=== PATIENT | male | born 1970 | race Caucasian/White ===

== ENCOUNTER → 2017-05-25 | Outpatient (CLI) | payer OTHER ==
[2015-10-07 00:35] VITALS: BP 143/89
[2017-05-25 17:51] LABS: CALCIUM 8.7 mg/dL (8.5-10.1); CREATININE 1.4 mg/dL (0.7-1.3); GFR 54.1; POTASSIUM 4.1 mmol/L (3.5-5.1)
[2017-05-25 17:53] LABS: BASO % 1 % (0-3); EOS # 0.2 x10^3/uL (0.0-0.7); EOS % 5 % (0-3); HEMATOCRIT 42.4 % (39.0-53.0); HEMOGLOBIN 14.6 g/dL (13.0-17.5); LYMPH # 1.1 x10^3/uL (1.0-4.8); LYMPH % 25 % (24-48); MEAN CORPUSCULAR HEMOGLOBIN 30 pg (25-35); MEAN CORPUSCULAR HGB CONC 34 g/dL (31-37); MEAN CORPUSCULAR VOLUME 87 fL (79-100); MONO # 0.5 x10^3/uL (0.0-1.1); MONO % 11 % (0-9); NEUT # 2.5 x10^3uL (1.8-7.7); NEUT % 58 % (31-73); PLATELET COUNT 145 x10^3/uL (140-400); RED BLOOD COUNT 4.87 x10^6/uL (4.30-5.70); RED CELL DISTRIBUTION WIDTH 13.2 % (11.5-14.5); WHITE BLOOD COUNT 4.3 x10^3/uL (4.0-11.0)
== END | disposition home or self-care (01) ==
LOC: LAB 17:03
PROVIDERS: ATTEND Family Medicine
DX: A41.9 Sepsis, unspecified organism (principal)
CPT/HCPCS: 36415; 80048; 83605; 85027; 87040

== ENCOUNTER → 2017-07-10 | Outpatient (CLI) | payer OTHER ==
[2015-10-07 00:35] VITALS: BP 143/89
--- NOTE | 2017-07-10 14:29 | RAD ---
Examination: Ultrasound right lower extremity venous duplex History: History of chronic leg pain, swelling. Comparison: None available Technique: Grayscale, color Doppler 2-D, spectral waveform analysis of the right lower extremity venous system was performed Findings The visualized common femoral vein, superficial femoral vein, popliteal vein demonstrate normal compression and augmentation of flow. The visualized calf veins are patent. Impression: No evidence of deep venous thrombosis right lower extremity venous system.
== END | disposition home or self-care (01) ==
LOC: US 13:41
PROVIDERS: ATTEND Physician Assistant
DX: G89.29 Other chronic pain (principal); M79.604 Pain in right leg; M79.89 Other specified soft tissue disorders
CPT/HCPCS: 93971

== ENCOUNTER → 2018-05-11 | Outpatient (CLI) | payer OTHER ==
[2017-04-19 12:38] VITALS: BP 154/84
[~2018-05-11] MED LIST: ACET500T55 PO; FLUT9.9S NS; IBUP800T19 PO; OMEG-33 PO; POTA20TA4 PO; ST.300CA2 PO; TORS20TA2 PO; VANC2PLA5 IV
== END | disposition home or self-care (01) ==
LOC: LAB 15:49
PROVIDERS: ATTEND Internal Medicine Cardiovascular Disease
DX: R06.09 Other forms of dyspnea (principal); I48.0 Paroxysmal atrial fibrillation
CPT/HCPCS: 36415; 83880; 85379

== ENCOUNTER 2021-07-12 14:03 | Inpatient (IN) | payer OTHER ==
[~2021-07-12] VITALS: Ht 193 cm; Wt 197.1 kg
[2021-07-12] MEDS: ENOXAPARIN ** NOTE DOSE ** SYRINGE SQ SCH ×2 (05:30→17:30)
[~2021-07-12 14:03] MED LIST changes: -ALBU2.5V14 NEB; -APIX5TAB3 PO; -BUDE8.435 NS; -BUME1TAB3 PO; -CEFD300C PO; -DEXA4VIA37 PO; -IOHEXOL 350 MG/ML 100 ML VIAL. IV ONE
--- NOTE | 2021-07-12 14:53 | PHYS DOC ---
Past History Past Medical History: Other Additional Past Medical Histor: Retains fluid throughout body (JOSE KANG APRN) Past Surgical History: No Surgical History (JOSE KANG APRN) Alcohol Use: None Drug Use: None (JOSE KANG APRN) General Adult EDM: Chief Complaint: SHORTNESS OF BREATH HPI: HPI: Patient is a 50-year-old male who presents to the ER today for pulmonary embolisms. Patient reports he had Covid on June 25 and has had shortness of breath with exertion. He saw Dr. Lee in his office today and was scheduled for an outpatient CT scan of his chest. He received a phone call stating that he needs to go to the ER for pulmonary embolisms. Patient denies any shortness of breath at rest but does report shortness of breath with exertion. He denies chest pain, leg pain, increased leg swelling, fevers. Patient's vital signs are stable at this time he is 94% on room air, with regular heart rate. (JOSE KANG APRN) Review of Systems: Review of Systems: 14 body systems of the review of systems have been reviewed. See HPI for pertinent positive and negative responses, otherwise all other systems are negative, nonpertinent or noncontributory (JOSE KANG APRN) Allergies: Allergies: Allergies Coded Allergies Type Severity Reaction Last Updated Verified Latex, Natural Rubber Allergy Intermediate 10/06/15 Yes NON MED ENTRY Allergy Intermediate 07/12/17 Yes lactose Allergy Intermediate 07/12/17 Yes pseudoephedrine Allergy Intermediate 07/12/17 Yes loratadine Allergy Mild 07/12/17 Yes (JOSE KANG APRN) Physical Exam: PE: Constitutional: Well developed, well nourished, no acute distress, non-toxic appearance. [] HENT: Normocephalic, atraumatic, bilateral external ears normal, oropharynx moist, no oral exudates, nose normal. [] Eyes: PERRL, EOMI, conjunctiva normal, no discharge. [] Neck: Normal range of motion, no stridor Cardiovascular:Heart rate regular rhythm, no murmur [] Lungs & Thorax: Bilateral breath sounds clear to auscultation [] Abdomen: Bowel sounds normal, soft, no tenderness, obese, no masses, no pulsatile masses. [] Skin: Warm, dry, no erythema, no rash. [] Back: Normal range of motion Extremities: No tenderness, no cyanosis, no clubbing, ROM intact, 3+ nonpitting edema that patient states is his baseline as he has a history of edema Neurologic: Alert and oriented X 3, normal motor function, normal sensory function, no focal deficits noted. [] Psychologic: Affect normal, judgement normal, mood normal. [] (JOSE KANG APRN) Current Patient Data: Labs: Laboratory Tests Test 07/12/21 14:45 White Blood Count 6.3 x10^3/uL Red Blood Count 4.86 x10^6/uL Hemoglobin 14.7 g/dL Hematocrit 43.7 % Mean Corpuscular Volume 90 fL Mean Corpuscular Hemoglobin 30 pg Mean Corpuscular Hemoglobin Concent 34 g/dL Red Cell Distribution Width 13.7 % Platelet Count 296 x10^3/uL Neutrophils (%) (Auto) 69 % Lymphocytes (%) (Auto) 16 % Monocytes (%) (Auto) 13 % Eosinophils (%) (Auto) 2 % Basophils (%) (Auto) 1 % Neutrophils # (Auto) 4.4 x10^3uL Lymphocytes # (Auto) 1.0 x10^3/uL Monocytes # (Auto) 0.8 x10^3/uL Eosinophils # (Auto) 0.1 x10^3/uL Basophils # (Auto) 0.0 x10^3/uL Prothrombin Time 11.4 SEC Prothromb Time International Ratio 1.1 Activated Partial Thromboplast Time 25 SEC Sodium Level 142 mmol/L Potassium Level 4.7 mmol/L Chloride Level 105 mmol/L Carbon Dioxide Level 28 mmol/L Anion Gap 9 Blood Urea Nitrogen 11 mg/dL Creatinine 1.2 mg/dL Estimated GFR (Cockcroft-Gault) 63.6 BUN/Creatinine Ratio 9 Glucose Level 100 mg/dL Lactic Acid Level 1.7 mmol/L Calcium Level 8.8 mg/dL Total Bilirubin 1.0 mg/dL Aspartate Amino Transf (AST/SGOT) 45 U/L Alanine Aminotransferase (ALT/SGPT) 79 U/L Alkaline Phosphatase 123 U/L Troponin I Quantitative < 0.017 ng/mL RL-Lkf-G-Type Natriuretic Peptide 241 pg/mL Total Protein 7.2 g/dL Albumin 3.1 g/dL Albumin/Globulin Ratio 0.8 Vital Signs: Vital Signs Date Time Temp Pulse Resp B/P (MAP) Pulse Ox O2 Delivery O2 Flow Rate FiO2 07/12/21 14:25 98.2 104 20 120/55 (76) 92 Room Air (JOSE KANG APRN) EKG: EKG: EKG performed by ER staff at 1507 shows sinus rhythm, no STEMI read by Dr. Franks at 1512. [] (JOSE KANG APRN) Radiology/Procedures: Radiology/Procedures: [] (JOSE KANG APRN) Heart Score: C/O Chest Pain: No Risk Factors: Risk Factors: DM, Current or recent (<one month) smoker, HTN, HLP, family history of CAD, obesity. Risk Scores: Score 0 - 3: 2.5% MACE over next 6 weeks - Discharge Home Score 4 - 6: 20.3% MACE over next 6 weeks - Admit for Clinical Observation Score 7 - 10: 72.7% MACE over next 6 weeks - Early Invasive Strategies (JOSE KANG APRN) Course & Med Decision Making: Course & Med Decision Making Pertinent Labs and Imaging studies reviewed. (See chart for details) [] Patient is a 50-year-old male being seen in the ER for pulmonary embolisms. Patient was told that he had a several PEs based on the CT scan that he had of his chest by Dr. Lee. Work-up in the ER consisted of blood work and an E KG. I was able to see the CTA of patient's chest since it was performed in our outpatient radiology. Patient was noted to have multiple airspace opacities in small filling defect in the distal right middle lobe and left upper lobe of the pulmonary arterial branches concerning for pulmonary embolisms. Patient's vital signs are stable at this time. He is not tachycardic and not hypoxic. Patient's CBC is unremarkable. His AST is 45, ALT 79, BNP 241. Negative troponin. I discussed patient's case with Dr. Lee who is patient's primary care provider and he agreed to admit the patient under his services for pulmonary embolism treatment. He advised to place patient on weight-based Lovenox treatments. Dosage confirmed with pharmacy. I discussed patient's findings with him as well as treatment plan and he is agreeable at this time. Patient continues to be stable in the ER. Care transferred at this time 1553. (JOSE KANG APRN) Dragon Disclaimer: Dragon Disclaimer: This electronic medical record was generated, in whole or in part, using a voice recognition dictation system. (JOSE KANG APRN) Attending Co-Sign The patient was seen and interviewed as well as examined at the bedside. The chart was reviewed. The case was discussed. Agree with the plan of care. (CHARISSA FRANKS DO) Departure Departure: Impression: Primary Impression: Pulmonary embolism Qualified Codes: I26.99 - Other pulmonary embolism without acute cor pulmonale Disposition: ADMITTED INPATIENT Admitting Physician: Pipe Santos (JOSE KANG APRN) Condition: STABLE Referrals: PIPE SANTOS MD (PCP) JOSE KANG APRN Jul 12, 2021 14:53 CHARISSA FRANKS DO Jul 12, 2021 17:41
[2021-07-12 15:14] LABS: BASO % 1 % (0-3); EOS # 0.1 x10^3/uL (0.0-0.7); EOS % 2 % (0-3); HEMATOCRIT 43.7 % (39.0-53.0); HEMOGLOBIN 14.7 g/dL (13.0-17.5); LYMPH % 16 % (24-48); MEAN CORPUSCULAR HEMOGLOBIN 30 pg (25-35); MEAN CORPUSCULAR HGB CONC 34 g/dL (31-37); MEAN CORPUSCULAR VOLUME 90 fL (79-100); MONO # 0.8 x10^3/uL (0.0-1.1); MONO % 13 % (0-9); NEUT # 4.4 x10^3uL (1.8-7.7); NEUT % 69 % (31-73); PLATELET COUNT 296 x10^3/uL (140-400); RED BLOOD COUNT 4.86 x10^6/uL (4.30-5.70); RED CELL DISTRIBUTION WIDTH 13.7 % (11.5-14.5); WHITE BLOOD COUNT 6.3 x10^3/uL (4.0-11.0)
[2021-07-12 15:19] LABS: CALCIUM 8.8 mg/dL (8.5-10.1); CREATININE 1.2 mg/dL (0.7-1.3); GFR 63.6; POTASSIUM 4.7 mmol/L (3.5-5.1)
[2021-07-12 15:32] LABS: ALBUMIN 3.1 g/dL (3.4-5.0); ALBUMIN/GLOBULIN RATIO 0.8 (1.0-1.7); TOTAL PROTEIN 7.2 g/dL (6.4-8.2)
[2021-07-12] MEDS ORDERED: ENOXAPARIN ** NOTE DOSE ** SYRINGE SQ ONE (15:44)
[2021-07-12] MEDS ORDERED: ALBUTEROL SULFATE 2.5 MG/3 ML NEBU. NEB ONE (16:30)
--- NOTE | 2021-07-12 17:50 | EKG ---
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
[2021-07-12 20:45] VITALS: BP 121/89
--- NOTE | 2021-07-12 21:00 | NUR ---
Pt admitted to ICU bed 6, telemetry status from ER via EMS. Pt presents A&OX4, denies any complaints of pain. A full assessment completed and history obtained per pt. Pt currently on RA with sats >95%. IV in Right AC S.L. Pt tested positive for COVID on 06/25/21. Pt has varying inconsistent stories with his condition and course of illness over the past 17 days. Pt states he took Ivermectin about week into his illness which "made me feel much better", but was given Regn-COV2 infusion on 07/07 because he wasn't getting any better, pt referred to this as his "transformer juice'. Pt also states his PCP gave him IM Rocephin last week, which he claims did nothing for him but "make my butt burn". One minute pts states he has had a "messed up gut" from the COVID and the next minute he blamed it on the medicines. Oriented pt to unit, nurse, call light and plan of care. V/U stated. Will monitor.
[2021-07-12] MEDS ORDERED: BUME1TAB3 PO (23:32)
[2021-07-13 05:00] VITALS: BP 134/80
[2021-07-13 06:24] LABS: BASO % 1 % (0-3); EOS # 0.1 x10^3/uL (0.0-0.7); EOS % 2 % (0-3); HEMATOCRIT 43.1 % (39.0-53.0); HEMOGLOBIN 14.7 g/dL (13.0-17.5); LYMPH # 1.2 x10^3/uL (1.0-4.8); LYMPH % 23 % (24-48); MEAN CORPUSCULAR HEMOGLOBIN 31 pg (25-35); MEAN CORPUSCULAR HGB CONC 34 g/dL (31-37); MEAN CORPUSCULAR VOLUME 89 fL (79-100); MONO # 0.6 x10^3/uL (0.0-1.1); MONO % 12 % (0-9); NEUT # 3.3 x10^3uL (1.8-7.7); NEUT % 62 % (31-73); PLATELET COUNT 294 x10^3/uL (140-400); RED BLOOD COUNT 4.82 x10^6/uL (4.30-5.70); RED CELL DISTRIBUTION WIDTH 13.9 % (11.5-14.5); WHITE BLOOD COUNT 5.3 x10^3/uL (4.0-11.0)
[2021-07-13 06:28] LABS: ALBUMIN 2.9 g/dL (3.4-5.0); ALBUMIN/GLOBULIN RATIO 0.7 (1.0-1.7); CALCIUM 8.8 mg/dL (8.5-10.1); GFR 78.5; POTASSIUM 3.9 mmol/L (3.5-5.1); TOTAL BILIRUBIN 0.8 mg/dL (0.2-1.0); TOTAL PROTEIN 7.3 g/dL (6.4-8.2)
--- NOTE | 2021-07-13 06:47 | NUR ---
Pts status unchanged throughout the night. Pt awake this and states he slept good and feels good. Pt has good oral intake and urine outpt. 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 Pt denies any complaints this am.
[2021-07-13 08:05] VITALS: BP 141/72
[2021-07-13] MEDS: IPRATRPIUM/ALBUTEROL 0.5/2.5MG 3 ML NEBU. NEB SCH ×2 (08:58→12:38)
[2021-07-13] MEDS ORDERED: ENOXAPARIN ** NOTE DOSE ** SYRINGE SQ SCH (09:00)
[2021-07-13] MEDS ORDERED: ACETAMINOPHEN 500 MG TABLET PO PRN (09:00)
[2021-07-13] MEDS ORDERED: FLUTICASONE 50MCG/NASAL SPRAY 16GM BOTTLE. NS PRN (09:00)
[2021-07-13] MEDS ORDERED: AZITHROMYCIN 250 MG TABLET. PO ONE (09:30)
[2021-07-13] MEDS: POTASSIUM CHLORIDE 20 MEQ TABLET.ER. PO SCH ×2 (09:37→18:25)
[2021-07-13] MEDS: DEXAMETHASONE SOD PHOS 4 MG/ML VIAL. IVP SCH ×3 (09:38→23:33)
[2021-07-13 11:05] VITALS: BP 119/68
[2021-07-13 15:26] VITALS: BP 132/75
[2021-07-13] MEDS: BUMETANIDE 1 MG TABLET PO PRN ×2 (18:10→21:01)
[2021-07-13] MEDS ORDERED: ZOLPIDEM 5 MG TABLET. PO PRN (18:45)
--- NOTE | 2021-07-13 19:13 | NUR ---
Per Pharmacy, pt does not qualify for Remdesivir because he is not requiring supplemental O2. Addendum: 07/13/21 at 2210 by JORDAN DEVRIES RN Pt has maintained spO2 at 92-95% on RA since admission.
[2021-07-13] MEDS: IPRATROPIUM/ALBUTEROL 20/100mcg/INH INHALER. INH SCH (20:00)
[2021-07-13] MEDS: ENOXAPARIN ** NOTE DOSE ** SYRINGE SQ SCH (20:39)
[2021-07-13] MEDS ORDERED: LACTOBACILLUS RHAMNOSUS GG 1 CAPSULE. PO SCH (21:00)
[2021-07-13 21:43] VITALS: BP 130/84
[2021-07-13 23:22] VITALS: BP 111/69
[2021-07-14] MEDS ORDERED: DEXAMETHASONE SOD PHOS 4 MG/ML VIAL. IVP SCH
--- NOTE | 2021-07-14 02:47 | PN ---
SUBJECTIVE: A 50-year-old male as noted came in yesterday with increased shortness of breath, dyspnea. The patient did have apparently positive for SARS as well as had positive pulmonary emboli. The patient has been started on Lovenox per protocol with the pharmacy. He has also been placed on antibiotic therapy and started him on remdesivir for his COVID-19. OBJECTIVE: VITAL SIGNS: Blood pressure 130/70, respiration 18, pulse 90. Presently afebrile, 94 on room air. The patient will continue to be monitored carefully on that. GENERAL: Otherwise, he is alert and oriented. LUNGS: Diminished throughout, poor movement of air. CARDIOVASCULAR: Regular sinus rhythm, S1, S2. ABDOMEN: Soft, nontender. EXTREMITIES: No clubbing, cyanosis, nor edema. NEUROLOGIC: Intact. Patient continued to be monitored, should be started on remdesivir as well as breathing treatments, Decadron and make further assessment on him as indicated. IMPRESSION: Bilateral blood clots of the lungs, COVID-19 pneumonia, dyspnea, acute respiratory distress, morbid obesity, elevated liver enzymes, severe protein malnutrition. ANA LILIA/EKT DR: ANA LILIA/drea TID: [id number]
[2021-07-14] MEDS: DEXAMETHASONE SOD PHOS 4 MG/ML VIAL. IVP SCH ×3 (05:24→17:57)
--- NOTE | 2021-07-14 06:20 | NUR ---
Pt reports not sleeping well overnight, however he refused a sleep aid when offered at HS. Pt reports he can't get comfortable in bed and is unhappy with the temperature of the room, despite multiple adjustments to the thermostat and fan settings. Pt continues to sat >90% on RA. Pt is hopeful to DC home later today.
[2021-07-14 06:33] VITALS: BP 133/79
[2021-07-14] MEDS: IPRATROPIUM/ALBUTEROL 20/100mcg/INH INHALER. INH SCH ×4 (08:21→20:00)
[2021-07-14] MEDS: CHOLECALCIFEROL (VITAMIN D3) 1,000 UNIT TABLET PO SCH (08:22)
[2021-07-14] MEDS: AZITHROMYCIN 250 MG TABLET. PO SCH (08:22)
[2021-07-14] MEDS: ENOXAPARIN ** NOTE DOSE ** SYRINGE SQ SCH ×2 (08:22→20:49)
[2021-07-14] MEDS: POTASSIUM CHLORIDE 20 MEQ TABLET.ER. PO SCH ×2 (08:23→21:00)
[2021-07-14 12:00] VITALS: BP 128/77
[2021-07-14 20:52] VITALS: BP 124/78
[2021-07-14] MEDS: BUMETANIDE 1 MG TABLET PO PRN (21:00)
[2021-07-14 23:21] VITALS: BP 131/70
[2021-07-15] MEDS: DEXAMETHASONE SOD PHOS 4 MG/ML VIAL. IVP SCH ×3 (00:07→20:25)
--- NOTE | 2021-07-15 01:41 | PN ---
SUBJECTIVE: A 50-year-old gentleman with acute respiratory failure, positive pulmonary embolus and COVID-19 pneumonia. The patient says he is feeling somewhat better, still receiving IV antibiotic therapy. OBJECTIVE: VITAL SIGNS: Blood pressure 128/77, respiration 18, pulse 80, afebrile, 93 on room air. GENERAL: The patient is alert and oriented. LUNGS: Diminished, primarily in the right lower lobe. CARDIOVASCULAR: Regular sinus rhythm. ABDOMEN: Soft, nontender. PLAN: Continue on his Lovenox treatments as well as IV antibiotic therapy. IMPRESSION: Pneumonia secondary to COVID-19, bilateral pulmonary emboli, morbid obesity. Continue to monitor. CYNTHIA DR: Miah TID: [id number]
--- NOTE | 2021-07-15 04:50 | NUR ---
Sleeps intermittently, wearing home CPAP machine as per preference; VSS, Sats 93-94% on room air, lungs CTA bilaterally, respirations even and unlabored; A&Ox4; up ad sandra in room with no problems reported; showered in early evening unassisted with no difficulty; anxious at times regarding dietary preferences and concerns, reassurance given; sleeping soundly at this time, siderails up x2, call mcintyre in reach.
[2021-07-15 07:30] VITALS: BP 138/93
[2021-07-15] MEDS: IPRATROPIUM/ALBUTEROL 20/100mcg/INH INHALER. INH SCH ×4 (08:05→20:25)
[2021-07-15] MEDS: AZITHROMYCIN 250 MG TABLET. PO SCH (08:06)
[2021-07-15] MEDS: ENOXAPARIN ** NOTE DOSE ** SYRINGE SQ SCH (08:06)
[2021-07-15] MEDS: POTASSIUM CHLORIDE 20 MEQ TABLET.ER. PO SCH (08:06)
[2021-07-15] MEDS: CHOLECALCIFEROL (VITAMIN D3) 1,000 UNIT TABLET PO SCH (08:06)
[2021-07-15] MEDS: BUMETANIDE 1 MG TABLET PO PRN ×2 (08:07→20:25)
[2021-07-15 10:30] LABS: CALCIUM 8.7 mg/dL (8.5-10.1); CREATININE 1.3 mg/dL (0.7-1.3); POTASSIUM 4.5 mmol/L (3.5-5.1)
[2021-07-15 11:00] VITALS: BP 118/55
--- NOTE | 2021-07-15 12:07 | RAD ---
Site ID: [id number] EXAMINATION: XR CHEST 1V. HISTORY: 50 years Male Reason: pneumonia, covid . COMPARISON: CTA exam from July 12, 2021 reviewed. Findings: Patchy bibasilar from interstitial the subtle infiltrates are from seen, confirmed on recen t CT scan. There is cardiomegaly with mild the vascular congestion also suggested. There is no effus ion or pneumothorax. The mediastinum and helga appear unremarkable. Impression: Mild interstitial infiltrates in the lung bases, better seen on the recent CT. Cardiomega ly with mild vascular congestion. Electronically signed by: Toni Lemons MD (07/15/2021 12:05 PM) [id number]
[2021-07-15 15:47] VITALS: BP 107/63
[2021-07-15] MEDS ORDERED: RIVAROXABAN 15 MG TABLET. PO SCH (17:00)
[2021-07-15 19:00] VITALS: BP 120/62
[2021-07-15] MEDS: APIXABAN 5 MG TABLET. PO SCH (20:25)
[2021-07-15] MEDS ORDERED: CEFDINIR 300 MG CAPSULE PO SCH (21:00)
[2021-07-15 22:49] VITALS: BP 125/51
--- NOTE | 2021-07-16 04:10 | PN ---
SUBJECTIVE: A 50-year-old gentleman in with both pulmonary emboli and SARS pneumonia. The patient is making good progress overall and continues to be converted over to oral medications. The patient is tapering down on Solu-Medrol. He is still receiving some IV antibiotic therapy. OBJECTIVE: VITAL SIGNS: Blood pressure 107/63, respiration 18, pulse 70, afebrile. GENERAL: The patient is alert and oriented. LUNGS: Diminished, primarily in the right lower lobe. CARDIOVASCULAR: Regular sinus rhythm, S1, S2, without murmur, rub, thrill, or extra heart sounds. ABDOMEN: Soft, nontender, no rebound or guarding. Positive bowel sounds, no hepatosplenomegaly noted. EXTREMITIES: No clubbing, cyanosis. Trace edema noted. IMAGING DATA: The patient's chest x-ray showed mild interstitial infiltrate in the lung bases, some cardiomegaly, possibly some vascular congestion. TREATMENT PLAN: The patient will be diuresed on that he has been switched over from Lovenox to Eliquis. Continue on his IV antibiotic therapy and we will continue on his budesonide and make further evaluation on him as indicated per those results. IMPRESSION: Bilateral pulmonary emboli, COVID-19 pneumonia, dyspnea, acute respiratory distress, morbid obesity, elevated liver enzymes, severe protein malnutrition, and pulmonary congestion. ANA LILIA/LAVERN DR: ANA LILIA/drea TID: [id number]
[2021-07-16 06:39] VITALS: BP 135/70
[2021-07-16] MEDS: AZITHROMYCIN 250 MG TABLET. PO SCH (08:31)
[2021-07-16] MEDS: APIXABAN 5 MG TABLET. PO SCH (08:31)
[2021-07-16] MEDS: POTASSIUM CHLORIDE 20 MEQ TABLET.ER. PO SCH (08:31)
[2021-07-16] MEDS: IPRATROPIUM/ALBUTEROL 20/100mcg/INH INHALER. INH SCH (08:31)
[2021-07-16] MEDS: DEXAMETHASONE SOD PHOS 4 MG/ML VIAL. IVP SCH (08:32)
[2021-07-16] MEDS: CHOLECALCIFEROL (VITAMIN D3) 1,000 UNIT TABLET PO SCH (08:32)
[2021-07-16] MEDS ORDERED: ALBU2.5V14 NEB (09:28)
[2021-07-16] MEDS ORDERED: BUDE8.435 NS (09:28)
[2021-07-16] MEDS ORDERED: BUMETANIDE 1 MG TABLET PO PRN (09:30)
[2021-07-16] MEDS ORDERED: CEFD300C PO (09:34)
[2021-07-16] MEDS ORDERED: APIX5TAB3 PO (09:34)
[2021-07-16] MEDS ORDERED: DEXA4VIA37 PO (09:34)
[2021-07-16] MEDS ORDERED: BUME1TAB3 PO (09:34)
--- NOTE | 2021-07-16 10:39 | NUR ---
PT WHEELED TO THE FRONT BY STAFF. PT HAS BELONGINGS AND DISCHARGE PAPERWORK. PT IN STABLE CONDITION. PT HEART MONITOR AND IV REMOVED.
--- NOTE | 2021-07-17 01:03 | DS ---
DATE OF DISCHARGE: 07/16/2021 HOSPITAL COURSE: A 50-year-old male came in with increased shortness of breath and alike. Previous COVID-19 test had been negative; however, this one turn positive and the patient was also positive for bilateral pulmonary emboli and the patient's oxygen saturation did drop initially. The patient was brought in. He was placed on IV antibiotics as well as Decadron and breathing treatments. The patient also given high doses of Lovenox up to 200 mg b.i.d. per pharmacy. The patient also continued to be monitored on pulmonary fluid retention. He has slight elevation of his liver enzymes and the patient made excellent progress during the rest of his hospitalization. X-rays were followed up and did show the interstitial infiltrates and of course cardiomegaly with mild vascular congestion. In any case, the patient made excellent progress and he was discharged home. BNP was only 240, AST 45, ALT 79, glucose 100. The patient was positive for COVID. IMPRESSION: COVID-19 pneumonia, bilateral pulmonary emboli, probably secondary to COVID-19, morbid obesity, elevated liver enzymes, severe protein malnutrition. The patient will be discharged home. Follow up as an outpatient. Continue to make further evaluation on him as indicated per those results. ANA LILIA/ELAINE/KIARA DR: ANA LILIA/drea TID: [id number]
[2021-07-17] MEDS ORDERED: DEXAMETHASONE SOD PHOS 4 MG/ML VIAL. IVP SCH (09:00)
[2021-07-22] MEDS ORDERED: APIXABAN 5 MG TABLET. PO SCH (21:00)
== END 2021-07-16 10:44 | disposition home or self-care (01) | DRG 177 ==
LOC: ER 14:03 → ICU 19:42 → 1 SOUTH 07-13 17:26
PROVIDERS: ADMIT Family Medicine; ATTEND Family Medicine
DX: U07.1 COVID-19 (principal); J12.82 Pneumonia due to coronavirus disease 2019; E43 Unspecified severe protein-calorie malnutrition; I26.99 Other pulmonary embolism without acute cor pulmonale; J96.00 Acute respiratory failure, unspecified whether with hypoxia or hypercapnia; Z68.43 Body mass index [BMI] 50.0-59.9, adult; E66.01 Morbid (severe) obesity due to excess calories; Z88.8 Allergy status to other drugs, medicaments and biological substances; Z91.040 Latex allergy status
CPT/HCPCS: 36415; 71045; 80048; 80053; 83605; 83880; 84484; 85025; 85610; 85730; 93005; 94640; 96372; J0696; J1100; J1650; U0003; 99285-25; J7613

== ENCOUNTER → 2021-07-12 | Outpatient (CLI) | payer OTHER ==
[2021-07-07 21:00] VITALS: BP 136/89
[~2021-07-12] MED LIST changes: -ACET500T55 PO; +ACET500T56 PO; +ALBU2.5V14 NEB; +APIX5TAB3 PO; +BUDE8.435 NS; +BUME1TAB3 PO; +CEFD300C PO; +DEXA4VIA37 PO; +IOHEXOL 350 MG/ML 100 ML VIAL. IV ONE; +POTA-121 PO; -POTA20TA4 PO
--- NOTE | 2021-07-12 13:07 | RAD ---
Examination: CT angiography chest with IV contrast HISTORY: History of shortness of breath COMPARISON: None TECHNIQUE: Axial CT angiographic images of chest were performed with IV contrast. Coronal and sagitta l 3-D MIP reformats are performed Exposure: One or more of the following individualized dose reduction techniques were utilized for thi s examination: 1. Automated exposure control 2. Adjustment of the mA and/or kV according to patient size 3. Use of iterative reconstruction technique FINDINGS: The central airways are patent. The heart size grossly appears unremarkable. The caliber of the aorta grossly appears unremarkable. Coronary artery calcifications identified. There is no evidence of cruz ling defect identified in the medial compartment of the right and left main pulmonary arteries. The e valuation of distal branches of the pulmonary arteries is limited however there appears to be filling defect identified in the right middle lobe and left upper lobe pulmonary arteries likely pulmonary e mboli.. Small mediastinal lymph node identified. Mild bilateral hilar lymph nodes. Multiple airspace opacities scattered in the bilateral lungs throughout. Mild decreased attenuation w ithin the liver likely steatosis. Moderate degenerative changes thoracic spine. IMPRESSION: 1. Small filling defect identified in the distal right middle lobe and left upper lobe pulmonary pete rial branches likely pulmonary emboli. 2. Multiple airspace opacities scattered in the bilateral lungs throughout likely infiltrates/ covid pneumonia. FOR INTERNAL CODING PURPOSES Critical result: Findings discussed with ordering physician's nurse at 07/12/2021 1:03 PM. RESULT CODE: (C) Electronically signed by: Doug Sands MD (07/12/2021 1:05 PM) [id number]
[2021-07-12 13:18] LABS: BASO % 0 % (0-3); EOS # 0.1 x10^3/uL (0.0-0.7); EOS % 2 % (0-3); HEMOGLOBIN 13.9 g/dL (13.0-17.5); LYMPH # 0.8 x10^3/uL (1.0-4.8); LYMPH % 13 % (24-48); MEAN CORPUSCULAR HEMOGLOBIN 30 pg (25-35); MEAN CORPUSCULAR HGB CONC 34 g/dL (31-37); MEAN CORPUSCULAR VOLUME 90 fL (79-100); MONO # 0.9 x10^3/uL (0.0-1.1); MONO % 13 % (0-9); NEUT # 4.9 x10^3uL (1.8-7.7); NEUT % 73 % (31-73); PLATELET COUNT 295 x10^3/uL (140-400); RED BLOOD COUNT 4.58 x10^6/uL (4.30-5.70); RED CELL DISTRIBUTION WIDTH 14.3 % (11.5-14.5); WHITE BLOOD COUNT 6.8 x10^3/uL (4.0-11.0)
[2021-07-12 17:07] LABS: % BANDS 3 % (0-9); % EOS 2 % (0-5); % LYMPHS 9 % (24-48); % MONOS 10 % (0-10); % SEGS 76 % (35-66)
[2021-07-12 17:08] LABS: PLT ESTIMATE ADEQUATE (ADEQUATE)
== END ==
LOC: RAD 11:55
PROVIDERS: ATTEND Family Medicine
DX: I25.10 Atherosclerotic heart disease of native coronary artery without angina pectoris (principal); R06.02 Shortness of breath; R93.49 Abnormal radiologic findings on diagnostic imaging of other urinary organs
CPT/HCPCS: 36415; 71275; 85007; 85025; Q9967